=== PATIENT | female | born 1970 | race Caucasian/White ===

== ENCOUNTER 2017-02-16 17:34 | Emergency (ER) | payer OTHER | END 2017-02-16 20:45 | disposition home or self-care (01) | LOC: ER 17:34 | DX: L02.512 Cutaneous abscess of left hand (principal); F41.1 Generalized anxiety disorder; A59.03 Trichomonal cystitis and urethritis; M54.2 Cervicalgia; F15.10 Other stimulant abuse, uncomplicated; F17.210 Nicotine dependence, cigarettes, uncomplicated; Z90.710 Acquired absence of both cervix and uterus; Z79.899 Other long term (current) drug therapy; Z88.1 Allergy status to other antibiotic agents; Z88.2 Allergy status to sulfonamides; Z88.5 Allergy status to narcotic agent | CPT/HCPCS: 36415; 80307; 96361; 96374; 96375; J1885; J2060 ==